=== PATIENT | female | born 1985 | race Caucasian/White ===

== ENCOUNTER 2017-05-22 07:34 | Emergency (ER) | payer OTHER ==
[2017-05-22 08:31] LABS: BASO # 0.1 10^3/uL (0.0-0.2); BASO % 0.8 % (0.0-1.0); EOS # 0.2 10^3/uL (0.0-0.50); EOS % 2.7 % (0.0-3.0); HEMATOCRIT 36.8 % (36.0-47.0); HEMOGLOBIN 12.4 g/dl (12.0-16.0); IMMATURE GRANULOCYTE % 0.2 % (0-3.0); LYMPH # 2.2 10^3/uL (1.5-4.5); LYMPH % 34.6 % (24.0-44.0); MEAN CORPUSCULAR HGB CONC 33.7 g/dl (32.0-36.5); MONO # 0.4 10^3/uL (0.0-0.8); MONO % 6.8 % (0.0-5.0); NEUTROPHILS # 3.5 10^3/uL (1.8-7.7); NEUTROPHILS % 54.9 % (36.0-66.0); PLATELET COUNT, AUTOMATED 268 10^3/uL (150-450); RED BLOOD COUNT 4.28 10^6/uL (4.00-5.40); RED CELL DISTRIBUTION WIDTH 11.5 % (11.5-14.5); WHITE BLOOD COUNT 6.3 10^3/uL (4.0-10.0)
[2017-05-22] MEDS: NS 1,000 ML IV (08:39)
[2017-05-22] MEDS: ONDANSETRON 4MG/2ML VIAL (J2405) IV (08:39)
[2017-05-22] MEDS: KETOROLAC 30 MG/ML VIAL (J1885) IV (08:39)
[2017-05-22 08:51] LABS: KETONE, URINE AUTO RFX NEGATIVE (NEGATIVE); MUCUS, URINE RFX SMALL (NEGATIVE); NITRITE, URINE AUTO RFX NEGATIVE (NEGATIVE); RBC, URINE AUTO RFX 67 /HPF (0-3); SPECIFIC GRAVITY UR AUTO RFX 1.024 (1.002-1.035); SQUAM EPITHELIAL CELL UR AURFX 5 /HPF (0-6)
[2017-05-22 09:10] LABS: ALBUMIN 4.2 GM/DL (3.2-5.2); ALBUMIN/GLOBULIN RATIO 1.62 (1.00-1.93); ALKALINE PHOSPHATASE 73 U/L (45-117); ALT/SGPT 28 U/L (12-78); ANION GAP 7 MEQ/L (8-16); AST/SGOT 14 U/L (7-37); BILIRUBIN,TOTAL 0.3 MG/DL (0.2-1.0); BLOOD UREA NITROGEN 11 MG/DL (7-18); CALCIUM LEVEL 8.1 MG/DL (8.5-10.1); CARBON DIOXIDE LEVEL 25 MEQ/L (21-32); CHLORIDE LEVEL 107 MEQ/L (98-107); CREATININE FOR GFR 0.57 MG/DL (0.55-1.30); GLOMERULAR FILTRATION RATE > 60.0 (>60); GLUCOSE, FASTING 90 MG/DL (70-100); LIPASE 171 U/L (73-393); POTASSIUM SERUM 3.9 MEQ/L (3.5-5.1); SODIUM LEVEL 139 MEQ/L (136-145); TOTAL PROTEIN 6.8 GM/DL (6.4-8.2)
[2017-05-22 09:18] LABS: LEUKOCYTE ESTERASE UR AUTO RFX 2+ (NEGATIVE); WBC, URINE AUTO RFX 20 /HPF (0-3)
[2017-05-22] MEDS: PHENAZOPYRIDINE 100 MG TAB PO (09:45)
[2017-05-22] MEDS: NITROFURANTOIN (MACROBID) 100 MG CAP PO (09:45)
[2017-05-22] MEDS: TAMSULOSIN 0.4 MG CAP PO (09:45)
== END 2017-05-22 09:53 | disposition home or self-care (01) ==
LOC: M ED 07:34
DX: N20.0 Calculus of kidney (principal); Z87.891 Personal history of nicotine dependence; Z88.0 Allergy status to penicillin
CPT/HCPCS: J2405

== ENCOUNTER → 2017-06-25 | Outpatient (REF) | payer OTHER ==
[2017-06-25 13:23] LABS: APPEARANCE, URINE CLEAR (CLEAR); BACTERIA, URINE AUTO NEGATIVE (NEGATIVE); BILIRUBIN, URINE AUTO NEGATIVE (NEGATIVE); BLOOD, URINE BLOOD NEGATIVE (NEGATIVE); COLOR, URINE COLORLESS (YELLOW); GLUCOSE, URINE (UA) AUTO NEGATIVE (NEGATIVE); KETONE, URINE AUTO NEGATIVE (NEGATIVE); LEUKOCYTE ESTERASE, URINE AUTO NEGATIVE (NEGATIVE); NITRITE, URINE AUTO NEGATIVE (NEGATIVE); PROTEIN, URINE AUTO NEGATIVE (NEGATIVE); RBC, URINE AUTO 1 /HPF (0-3); SPECIFIC GRAVITY URINE AUTO 1.002 (1.002-1.035); SQUAMOUS EPITHELIAL CELL UR AU 0 /HPF (0-6); UROBILINOGEN, URINE AUTO 0.2 mg/dL (0.0-2.0); WBC, URINE AUTO 0 /HPF (0-3)
== END ==
LOC: M SMT 12:58
DX: N20.0 Calculus of kidney (principal)
CPT/HCPCS: 81001

== ENCOUNTER → 2017-07-05 | Outpatient (CLI) | payer OTHER | LOC: M SMT 08:19 | DX: R93.41 Abnormal radiologic findings on diagnostic imaging of renal pelvis, ureter, or bladder (principal); Z87.442 Personal history of urinary calculi | CPT/HCPCS: 76770 ==

== ENCOUNTER 2019-01-06 10:25 | Emergency (ER) | payer OTHER ==
[~2019-01-06] VITALS: Ht 165.1 cm; Wt 43.2 kg
[~2019-01-06 10:25] MED LIST: FLOM0.4C39 PO; MACR100C43 PO; MOTR200T44 PO; NAPR-837 PO; PYRI1TAB5 PO
[2019-01-06 11:09] LABS: BASO # 0.1 10^3/uL (0.0-0.2); EOS # 0.1 10^3/uL (0.0-0.5); EOS % 2.3 % (0.0-3.0); HEMATOCRIT 38.6 % (36.0-47.0); HEMOGLOBIN 12.8 g/dl (12.0-15.5); LYMPH # 1.9 10^3/uL (1.5-5.0); LYMPH % 39.1 % (24.0-44.0); MEAN CORPUSCULAR HGB CONC 33.2 g/dl (32.0-36.5); MEAN CORPUSCULAR VOLUME 87.5 fl (80.0-96.0); MONO # 0.3 10^3/uL (0.0-0.8); NEUTROPHILS # 2.5 10^3/uL (1.5-8.5); NEUTROPHILS % 51.4 % (36.0-66.0); PLATELET COUNT, AUTOMATED 243 10^3/uL (150-450); RED BLOOD COUNT 4.41 10^6/uL (4.00-5.40); WHITE BLOOD COUNT 4.8 10^3/uL (4.0-10.0)
--- NOTE | 2019-01-06 13:21 | REP ---
Obstetric sonography: Emergency first trimester OB ultrasound. History: Vaginal bleeding. Findings: Scanning is performed transabdominally and transvaginally. A normal-sized empty uterus is seen with dimensions of 7.2 x 3.8 x 4.2 cm. Endometrial echo is 1.4 cm thick. There is no evidence of intrauterine . There is some anechoic free fluid visible in the cul-de-sac minimal in amount. Normal ovaries are observed bilaterally. Right ovary dimensions are 2.1 x 1.2 x 2.3 cm. Left ovary measures 3.5 x 2.1 x 3.8 cm. Impression: A mild amount of cul-de-sac fluid is seen. Normal ovaries are seen. A normal-sized empty uterus. No evidence of intrauterine gestation. Clinical and possibly sonographic followup suggested. Electronically Signed by Rigoberto Pete MD 01/06/2019 01:28 P
[2019-01-06] MEDS ORDERED: RHOGAM 300 MCG (1500 IU) INJ (J2790) IM ONE (13:30)
[2019-01-06 14:17] VITALS: BP 112/68
== END 2019-01-06 14:18 | disposition home or self-care (01) ==
LOC: M ED 10:25
DX: O20.0 Threatened abortion (principal); Z88.0 Allergy status to penicillin
CPT/HCPCS: 76801; 76817; 81001; 84702; 85025; 86850; 86901; 93976; 96372; 99283; J2790

== ENCOUNTER → 2019-05-16 | Outpatient (REF) | payer OTHER | LOC: M SFHCLERA 18:52 | PROVIDERS: ATTEND Physician Assistant | DX: J02.9 Acute pharyngitis, unspecified (principal) | CPT/HCPCS: 81002; 87086; 87880; G0463 ==

== ENCOUNTER → 2019-07-19 | Outpatient (CLI) | payer OTHER ==
--- NOTE | 2019-07-19 10:34 | REP ---
REASON: Followup anatomy. I have no priors for comparison whatsoever. Multiple ultrasonographic images of the gravid uterus shows a single living intrauterine gestation in the cephalic presentation. Doppler interrogation of the heart shows a heart rate of 147 beats per minute. The placenta is anterior and not low-lying. The subjective amniotic fluid volume is within normal limits. The cervix measures 3.3 cm in length and is closed. Evaluation of the maternal adnexal spaces show no abnormalities. The calculated amniotic fluid index is 12.6 with the expected range 8.6 to 24.2. BPD 7.9 cm = 31 weeks 4 days HC 28.0 cm = 30 weeks 4 days AC 26.9 cm = 31 weeks 0 days FL 6.0 cm = 31 weeks 0 days The estimated weight is 1676 grams, which is at the 22nd percentile for a 58-ikkx-2-day gestational age. anatomical structures seen as unremarkable are as follows: Thalami, cavum septum pellucidum, cerebellum, cisterna magna, cerebral ventricles, upper lip, right and left ventricular outflow tracts, three-vessel umbilical cord, kidneys, urinary bladder, stomach, upper and lower extremities, and four-chamber heart. An echogenic intracardiac focus was seen in the left ventricle likely cordae tendinea. The cord insertion and spine were suboptimally visualized. IMPRESSION: Single living intrauterine gestation as described above and estimated gestational age of 31 weeks 1 day via composite criteria and an estimated date of delivery 09/19/2019 by today's exam. No anomalies were detected, however, I recommend a followup examination to ensure resolution of the intracardiac echogenic focus as described above along with complete visualization of the spine to include the tapered sacrococcygeal region in the sagittal plane. Re-evaluation of the cord insertion site is also recommended since it was suboptimally visualized today. Electronically Signed by Braden Herrera DO 07/19/2019 01:35 P
== END ==
LOC: M RAD 09:10
PROVIDERS: ATTEND Advanced Practice Midwife
DX: Z34.83 Encounter for supervision of other normal pregnancy, third trimester (principal); Z3A.31 31 weeks gestation of pregnancy

== ENCOUNTER 2019-09-07 07:49 | Outpatient (CLI) | payer OTHER ==
[~2019-09-07] VITALS: Ht 165.1 cm; Wt 58.7 kg
[2019-09-07] MEDS ORDERED: PRENTAB9 PO (08:09)
[2019-09-07 08:22] VITALS: BP 106/58
--- NOTE | 2019-09-07 09:41 | IPNPDOC ---
Text Note Date of Service The patient was seen on 09/07/19. NOTE LND Triage Note S: Keily is a 33yo at 39+2wks by EDC of [id number]. She presents to LND triage for labor check; she reports regular contractions since last night, getting as close as 5 minutes apart and regular. Since her arrival to triage she states that her contractions have spaced out. She denies LOF/VB and she endorses excellent movement. Her has been uncomplicated thus far, GBS Negative, A Negative blood Type, starting BMI 15.8 (adequate weight gain of 32lbs). O: VSS, afebrile, normotensive FHR 135, moderate variability, + accels, no decels noted Occassional contractions noted on TOCO, mild by palpation VE: 2-3/50/-3 A: 33yo , not in labor at this time, Category I FHT and reactive. Safe for discharge home. P: Discharge home with return precautions Review labor/danger precautions f/u PRN or next week in the clinic VS,[place], I+O VS, [place], I+O Vital Signs Date Time Temp Pulse Resp B/P (MAP) Pulse Ox O2 Delivery O2 Flow Rate FiO2 09/07/19 08:22 98.2 18 106/58 (74) SERVANDO SOUZA CNM September 07, 2019 09:41
== END 2019-09-07 09:00 | disposition home or self-care (01) ==
LOC: M LDO 07:49
PROVIDERS: ATTEND Registered Nurse Maternal Newborn
DX: O26.893 Other specified pregnancy related conditions, third trimester (principal); O47.1 False labor at or after 37 completed weeks of gestation; Z3A.39 39 weeks gestation of pregnancy
CPT/HCPCS: 59025; G0378; G0463

== ENCOUNTER 2019-09-17 21:15 | Outpatient (CLI) | payer OTHER ==
[~2019-09-17] VITALS: Ht 165.1 cm; Wt 61.5 kg
[~2019-09-17 21:15] MED LIST changes: +PRENTAB9 PO
[2019-09-17 21:27] VITALS: BP 119/71
--- NOTE | 2019-09-18 06:52 | HPE ---
DATE OF ADMISSION: 09/17/2019 33-year-old, 2, para 1, last menstrual period (LMP) 12/06/2018, expected date of confinement (EDC) 09/12/2019 at 40 and 5 weeks of gestation with decreased movement. Contractions are every 10 minutes, mild in intensity. No vaginal bleeding. No spontaneous rupture of membranes. RISK FACTORS: Her BMI is 15.8. She is Rh negative and she is post dates. PAST HISTORY: March 2017, 39 weeks, spontaneous vaginal delivery, male with epidural, 6 pounds 4 ounces. LABS: A negative. HIV negative. Hepatitis negative. RPR negative. Varicella nonimmune. Pap normal. Urine negative. Gonorrhea and chlamydia negative. 1-hour glucose was 74. She is GBS negative. Blood pressure is 119/71, respirations are 16, pulse 79, and temperature 98.9. Urine is 1.015, pH is 5, the rest is negative. On examination, no distress. Symphysis fundus height is 40, vertex occiput anterior (OA). Cervix is posterior, 3 cm, 50% and -3 station. This is what it was 3 days ago. She had her membranes stripped at that time. She has no vaginal bleeding or vaginal loss. Category one strip with moderate variability. No decelerations. Accelerations were noted and occasional contraction about 8 minutes apart. Ultrasound performed showed vertex presenting, amniotic fluid 12.71 cm, smallest pocket was 3.21 cm. Cardiac activity was noted, respirations spontaneously were noted. Limb movement was noted. Good tone. Biophysical profile is 8/8 with a category one strip that was 10/10. The patient was given precautions. She was discharged undelivered with plan of induction of labor in48 hours.
== END 2019-09-17 22:20 | disposition home or self-care (01) ==
LOC: M LDO 21:15
PROVIDERS: ATTEND Obstetrics & Gynecology
DX: O36.8130 Decreased fetal movements, third trimester, not applicable or unspecified (principal); Z3A.40 40 weeks gestation of pregnancy
CPT/HCPCS: 59025; 76815; G0378; G0463

== ENCOUNTER 2019-09-19 16:55 | Inpatient (IN) | payer OTHER ==
[2019-09-19] VITALS (9 sets, daily range): BP systolic 95–122; BP diastolic 55–76
[~2019-09-19] VITALS: Ht 165.1 cm; Wt 60.0 kg
[2019-09-19] MEDS ORDERED: LR 1,000 ML IV SCH (18:03)
[2019-09-19 18:42] LABS: HEMATOCRIT 35.4 % (36.0-47.0); HEMOGLOBIN 11.9 g/dl (12.0-15.5); MEAN CORPUSCULAR HEMOGLOBIN 30.1 pg (27.0-33.0); MEAN CORPUSCULAR HGB CONC 33.6 g/dl (32.0-36.5); MEAN CORPUSCULAR VOLUME 89.4 fl (80.0-96.0); PLATELET COUNT, AUTOMATED 235 10^3/uL (150-450); RED BLOOD COUNT 3.96 10^6/uL (4.00-5.40); WHITE BLOOD COUNT 8.8 10^3/uL (4.0-10.0)
[2019-09-19] MEDS ORDERED: OXYTOCIN DRIP 30 UNITS in IV 1 EA IV SCH (20:15)
--- NOTE | 2019-09-19 20:28 | HPEPDOC ---
Obstetrical History & Physical General Date of Admission Sep 19, 2019 at 16:55 History of Present Illness patient is a 33 yo @41wks gestation presents for IOL for pending postdates. patient denies regular ctx/lof/vb. Chief Complaint: Induction of labor Information Provided By: Patient Age: 33 : 2 Term: 1 Pre-term: 0 Abortions: 0 Livin Care Care: Good Care Dating Final EDC: Sep 12, 2019 Final EDC for Daily Update: Sep 12, 2019 Final EDC by: LMP, 1st trimester (US) Past Medical History Past Obstetrical History : Past Obstetrical History: Multigravida ( X 1, 6lbs 4oz, uncomplicated @ 39wks) HEMOTHERAPIST History: No pertinent history Past Medical History Surgical History: Denies/None Family History Significant Family History: No pertinent family hx Social History Marital Status: Family situation: Spouse/partner home * Smoker: non-smoker Alcohol: Denies Drugs: denies Allergies Coded Allergies: Penicillins (Verified Allergy, Unknown, 01/06/19) fever Medications Scheduled No.137/Iron/Folic Acd ( Vitamin Tablet) 1 Each Tablet, 1 TAB PO DAILY Physical Examination Physical Examination GENERAL: Alert and oriented times three. BREAST: . ABDOMEN: Gravid and non-tender to touch. FETUS: Is vertex (VTX) by sterile vaginal examination (SVE), fetus is vertex (VTX) by Jac. HEART RATE: Regular rate and rhythm. LUNGS: Clear to auscultation (CTA). EXTREMITIES: No edema/erythema/tenderness EFW: 3500gm Vital Signs/I&O Vital Signs Date Time Temp Pulse Resp B/P (MAP) Pulse Ox O2 Delivery O2 Flow Rate FiO2 09/19/19 17:09 98.0 77 18 122/76 (91) Laboratory Data 24H LABS Laboratory Tests 2 09/19/19 17:02: Serology Scanned Report Hepatitis B Testing 09/19/19 17:29: Nucleated Red Blood Cells % (auto) 0.0 CBC/BMP Laboratory Tests 09/19/19 17:29 Pertinent Laboratoy Data Blood Type: A- RBC Antibody Screen: Negative HIV: Negative Hepatitis B: Negative Rapid Plasma Reagin: Nonreactive Rubella: Immune Chlamydia/Gonorrhea: Negative Group B Streptococcus: Negative Anatomy Ultrasound Placenta Location: Anterior Normal Anatomy: No (echogenic intracardiac focus in left ventricle likely cordae tendinea) Placenta Previa: No Vaginal Examination Dilation: 3 cm Effacement: 70% Station: -2 Cervical Consistency: Medium Cervical Position: Middle Presentation: Cephalic presentation Assessment Heart Rate (FHR): 135 Variability: Moderate Accelerations: Positive Decelerations: None Tocometer Contractions: Yes Frequency: greater than 9 min/apart Assessment/Plan Assessment patient is a 33 yo @ 41wks gestation admitted for IOL. discussed induction of labor using oxytocin and AROM as needed. External and internal monitoring as indicated. Risks of emergent section, infection needing antibiotics, bleeding requiring blood transfusion and associated risks, operative vaginal delivery with forceps or vacuum, and episiotomy discussed with patient. Colette, DO Plan Admit and orient. Upsetter Setter Up and consent. Diet: Clear Group B Streptococcus (GBS) negative. oxytocin and arom as indicated for IOL anesthesia consult pelvis proven. ANGIE ABREU DO Sep 19, 2019 20:28
[2019-09-20] VITALS (9 sets, daily range): BP systolic 91–120; BP diastolic 50–72
[2019-09-20] MEDS ORDERED: FENTANYL 2MCG/ML ROPIVACAINE 0.2% IN 0.9% NACL 100ML IVBAG As Ordered ONE (01:40)
[2019-09-20] MEDS ORDERED: OXYTOCIN DRIP 30 UNITS in IV 1 EA IV SCH (02:49)
[2019-09-20] MEDS ORDERED: MEASLES,MUMPS,RUBELLA VACCINE INJ (MMR-II) (90707) SC SCH (03:00)
[2019-09-20] MEDS ORDERED: ACETAMINOPHEN TAB 650MG DOSE (2X325MG) PO PRN (03:00)
[2019-09-20] MEDS ORDERED: DIBUCAINE 1% OINTMENT 30GM TOP PRN (03:00)
[2019-09-20] MEDS ORDERED: RHOGAM 300 MCG (1500 IU) INJ (J2790) IM SCH (03:00)
--- NOTE | 2019-09-20 03:00 | DNPDOC ---
[facility] Delivery Note Delivery Note DATE OF DELIVERY: 20Sep2019 PREDELIVERY DIAGNOSIS: 41+1/7 weeks' gestation and labor. POST DELIVERY DIAGNOSIS: Delivered. PROCEDURE: Spontaneous vaginal delivery CONCERT PROMOTER: Dr. Silvia Alvarenga DO ANESTHESIA: none ESTIMATED BLOOD LOSS: 250 mL. FINDINGS: 6 pound 12 ounce, 3050 gm, male , Score 8/9. DELIVERY SUMMARY: Patient with urge to push, on hands and knees. Baby delivered OA, restituted LOT. Anterior shoulder delivered followed by posterior shoulder, body followed with ease. Baby bulb suctioned with vigorous cries. Cord clamped x 2 and cut by FOB. Patient lay on her back. Pitocin bolus started. Cord blood collected per routine. Placenta delivered spontaneously, inspected to have clotted blood. Placenta intact. 3VC. Fundus massaged firm. Vaginal inspection shows small abrasion, posterior midline, hemostatic not needing repair. Baby and mother bonding when I left the room. DO BRADY Alvarenga LUAT N. DO Sep 20, 2019 03:00
[2019-09-20] MEDS: IBUPROFEN 800 MG TAB PO PRN ×2 (03:09→19:04)
[2019-09-20] MEDS: DOCUSATE SODIUM 100 MG CAP PO SCH ×2 (07:24→20:38)
[2019-09-20] MEDS: PRENATAL VITAMINS CHEWABLE TABLET PO SCH (07:24)
[2019-09-21 05:28] VITALS: BP 110/64
[2019-09-21] MEDS ORDERED: IBUP80TA PO (07:50)
[2019-09-21] MEDS ORDERED: DOCU100C16 PO (07:50)
[2019-09-21] MEDS ORDERED: DIBU10OI TOP (07:50)
[2019-09-21] MEDS: DOCUSATE SODIUM 100 MG CAP PO SCH (08:58)
[2019-09-21] MEDS: PRENATAL VITAMINS CHEWABLE TABLET PO SCH (08:58)
[2019-09-21] MEDS: IBUPROFEN 800 MG TAB PO PRN (09:49)
--- NOTE | 2019-09-23 17:46 | DSES ---
DATE OF ADMISSION: 09/19/2019 DATE OF DISCHARGE: 09/21/2019 A 33-year-old 2, now para 2, admitted for induction of labor at 41 weeks of gestation. Had a spontaneous vaginal delivery live- male infant, 6 pounds 12 ounces, 3050 grams, scores 8 and 9 at one and five minutes, respectively. On her second day we discussed phlebitis, cystitis, mastitis, metritis, cellulitis, diet, exercise, pain management, and perineal, breast, and wound care. She is going to lease picker her medications at [place], have a 6-week checkup at [facility]. On discharge her blood pressure was 110/64, respirations 18, pulse 67, temperature 97.7. Her admitting hemoglobin was 11.9, hematocrit 35.4, and platelets are 235. The rest of the examination unremarkable. Normocephalic, atraumatic. Neck: Full range of motion. Pupils equal and reactive to light. Distal pulses are symmetric. No evidence of deep vein thrombosis (DVT) pulmonary embolism (PE), or superficial phlebitis. Chest is clear to bilaterally bases. No wheezes or rhonchi. No costovertebral angle (CVA) tenderness. Abdomens soft. Uterus 2 below. Lochia is moderate. Four-quadrant bowel sounds are noted. No rashes, lesions, or pruritus. No arthralgia, myalgia. No complaint joint pain. No complaint cough, wheeze, shortness breath, or dyspnea on exertion. No nausea, vomiting, diarrhea, or constipation. She is voiding well. Has had a bowel movement, passing gas. Uterus is 2 below. Lochia is moderate. Perineum is intact. In summary, we have a term gestation, delivered a live male infant. Plan is discharge. All questions were answered. A 20-minute discussion.
--- NOTE | 2019-09-25 21:08 | IPN ---
DATE: 09/20/2019 This patient requested circumcision of her male , after discussing risks and benefits of circumcision, the medical, the nonmedical indications, the penile block and aftercare, expressed understanding of penile block, aftercare and bleeding, signed the consent form. All questions were answered. 20-minute discussion. We await the clearance by the housing assistant property manager.
== END 2019-09-21 11:35 | disposition home or self-care (01) | DRG 807 ==
LOC: M LDI 16:55 → M OBS 09-20 05:15
PROVIDERS: ADMIT Registered Nurse Maternal Newborn; ATTEND Registered Nurse Maternal Newborn
PROC: 3E033VJ Introduction of Other Hormone into Peripheral Vein, Percutaneous Approach (ICD-10-PCS; 2019-09-19)
PROC: 10E0XZZ Delivery of Products of Conception, External Approach (ICD-10-PCS; principal; 2019-09-20)
DX: O48.0 Post-term pregnancy (principal); Z37.0 Single live birth; Z3A.41 41 weeks gestation of pregnancy

== ENCOUNTER 2020-03-18 22:07 | Emergency (ER) | payer OTHER ==
[~2020-03-18] VITALS: Ht 165.1 cm; Wt 47.3 kg
[~2020-03-18 22:07] MED LIST changes: +DIBU10OI TOP; +DOCU100C16 PO; +IBUP80TA PO
[2020-03-18 22:08] VITALS: BP 117/66
== END 2020-03-18 22:49 | disposition home or self-care (01) ==
LOC: M ED 22:07
DX: J06.9 Acute upper respiratory infection, unspecified (principal); Z88.0 Allergy status to penicillin

== ENCOUNTER → 2020-11-20 | Outpatient (CLI) | payer OTHER ==
[~2020-11-20] MED LIST changes: -DIBU10OI TOP; +DIBU28OI2 TOP
== END ==
LOC: M WHC 12:59
PROVIDERS: ATTEND Family Medicine
DX: N63.0 Unspecified lump in unspecified breast (principal); Z53.9 Procedure and treatment not carried out, unspecified reason